=== PATIENT | male | born 1980 | race Caucasian/White ===

== ENCOUNTER 2020-03-24 13:11 | Inpatient (IN) | payer MEDICAID ==
[~2020-03-24] VITALS: Ht 165.1 cm; Wt 79.4 kg
[2020-03-24 13:56] LABS: EOSINOPHILS % (AUTO) 0.4 % (1.0-6.0); HEMATOCRIT 42.2 % (41-53); HEMOGLOBIN 14.3 g/dL (13.5-17.5); LYMPHOCYTES % (AUTO) 18.5 % (22.0-44.0); MEAN CORPUSCULAR HGB CONC 33.9 G/dL (31.0-37.0); MEAN CORPUSCULAR VOLUME 85 fL (80-100); MONOCYTES # (AUTO) 1.8 K/uL (0.1-1.0); MONOCYTES % (AUTO) 16.7 % (2.0-9.0); NEUTROPHILS # (AUTO) 6.7 K/uL (1.8-7.7); NEUTROPHILS % (AUTO) 63.4 % (40.0-70.0); PLATELET COUNT (AUTO) 205 K/uL (150-450); RED BLOOD CELL COUNT(AUTO) 4.95 MIL/uL (4.50-5.90); RED CELL DISTRIBUTION WIDTH 13.6 % (11.5-14.5)
[2020-03-24 14:19] LABS: ANION GAP 6 mmol/L (8-16); CALCIUM, TOTAL 8.9 mg/dL (8.8-10.5); CARBON DIOXIDE 28 mmol/L (22-29); CHLORIDE 99 mmol/L (98-107); CREATININE 1.56 mg/dL (0.60-1.30); GLOMERULAR FILTR. RATE CALC 50 mL/min (>60); GLUCOSE,RANDOM 140 mg/dL (70-110); POTASSIUM 3.7 mmol/L (3.5-5.1); SODIUM SERUM 133 mmol/L (136-145); UREA NITROGEN, BLOOD 40 mg/dL (7-18)
[2020-03-24 14:26] LABS: ALANINE AMINOTRANSFERASE 58 U/L (12-78); ALKALINE PHOSPHATASE 88 U/L (46-116); ASPARTATE AMINOTRANSFERASE 59 U/L (15-37); BILIRUBIN,TOTAL 1.3 mg/dL (0.1-1.0); TOTAL PROTEIN, SERUM 8.7 g/dL (6.4-8.2)
[2020-03-24 14:27] LABS: AMPHET/METH SCREEN,URINE POSITIVE (NEGATIVE); BARBITURATE SCREEN, URINE NEGATIVE (NEGATIVE); BENZODIAZEPINES SCREEN,URINE NEGATIVE (NEGATIVE); CANNABINOID SCREEN,URINE POSITIVE (NEGATIVE); COCAINE SCREEN,URINE NEGATIVE (NEGATIVE); METHADONE SCREEN, URINE NEGATIVE (NEGATIVE); OPIATE SCREEN,URINE NEGATIVE (NEGATIVE)
[2020-03-24 14:29] LABS: PHENCYCLIDINE SCREEN,URINE NEGATIVE (NEGATIVE)
[2020-03-24] MEDS ORDERED: HALOPERIDOL 5 MG TABLET PO PRN (15:00)
[2020-03-24] MEDS ORDERED: LORazepam 2 MG TABLET PO PRN (15:00)
[2020-03-24] MEDS ORDERED: SODIUM CHLORIDE 0.9% 1,000 ML IV ONE (16:30)
[2020-03-24] MEDS ORDERED: OLANZapine 5 MG TABLET PO ONE (16:30)
[2020-03-24 16:58] LABS: CREATINE KINASE, TOTAL ONLY 1304 U/L (39-308)
[2020-03-24] MEDS: OLANZapine 5 MG TABLET PO SCH (20:44)
[2020-03-25 05:10] LABS: BASOPHILS % (AUTO) 0.9 % (0.0-2.0); EOSINOPHILS % (AUTO) 2.5 % (1.0-6.0); HEMATOCRIT 39.8 % (41-53); HEMOGLOBIN 13.2 g/dL (13.5-17.5); LYMPHOCYTES # (AUTO) 1.9 K/uL (1.0-4.8); LYMPHOCYTES % (AUTO) 21.1 % (22.0-44.0); MEAN CORPUSCULAR HEMOGLOBIN 28.4 pg (26.0-34.0); MEAN CORPUSCULAR HGB CONC 33.1 G/dL (31.0-37.0); MEAN CORPUSCULAR VOLUME 86 fL (80-100); MONOCYTES % (AUTO) 22.2 % (2.0-9.0); NEUTROPHILS # (AUTO) 4.7 K/uL (1.8-7.7); NEUTROPHILS % (AUTO) 53.3 % (40.0-70.0); PLATELET COUNT (AUTO) 185 K/uL (150-450); RED BLOOD CELL COUNT(AUTO) 4.64 MIL/uL (4.50-5.90); RED CELL DISTRIBUTION WIDTH 13.6 % (11.5-14.5)
[2020-03-25 05:28] LABS: ALANINE AMINOTRANSFERASE 43 U/L (12-78); ALBUMIN 3.1 g/dL (3.4-5.0); ALKALINE PHOSPHATASE 74 U/L (46-116); ANION GAP 10 mmol/L (8-16); ASPARTATE AMINOTRANSFERASE 34 U/L (15-37); BILIRUBIN,TOTAL 0.7 mg/dL (0.1-1.0); CALCIUM, TOTAL 7.9 mg/dL (8.8-10.5); CARBON DIOXIDE 28 mmol/L (22-29); CHLORIDE 105 mmol/L (98-107); CREATININE 1.03 mg/dL (0.60-1.30); FREE T4 (FREE THYROXINE) 1.43 ng/dL (0.76-1.46); GLOMERULAR FILTR. RATE CALC > 60 mL/min (>60); GLUCOSE,RANDOM 115 mg/dL (70-110); POTASSIUM 3.3 mmol/L (3.5-5.1); SODIUM SERUM 143 mmol/L (136-145); THYROID STIMULATING HORMONE 1.74 uIU/mL (0.36-3.74); TOTAL PROTEIN, SERUM 6.9 g/dL (6.4-8.2); UREA NITROGEN, BLOOD 28 mg/dL (7-18)
[2020-03-25] MEDS ORDERED: POTASSIUM CHLORIDE 20 MEQ ER TABLET PO ONE (06:30)
[2020-03-25] MEDS: OLANZapine 5 MG TABLET PO SCH ×2 (07:46→16:27)
[2020-03-25 09:34] VITALS: BP 114/66
[2020-03-25] MEDS: CEPHALEXIN MONOHYDRATE 500 MG CAPSULE PO SCH ×2 (12:36→16:27)
[2020-03-25 16:00] VITALS: BP 104/68
[2020-03-25] MEDS: SULFAMETHOX/TRIMETH DS 800-160 MG/TABLET PO SCH (16:27)
[2020-03-26 08:00] VITALS: BP 116/66
[2020-03-26] MEDS: OLANZapine 5 MG TABLET PO SCH ×2 (08:39→16:25)
[2020-03-26] MEDS: CEPHALEXIN MONOHYDRATE 500 MG CAPSULE PO SCH ×3 (08:39→16:25)
[2020-03-26] MEDS: SULFAMETHOX/TRIMETH DS 800-160 MG/TABLET PO SCH ×2 (08:39→16:25)
[2020-03-26 16:52] VITALS: BP 115/74
[2020-03-26] MEDS: ACETAMINOPHEN 325 MG TABLET PO PRN (23:07)
[2020-03-27 07:44] LABS: ANION GAP 9 mmol/L (8-16); CALCIUM, TOTAL 8.6 mg/dL (8.8-10.5); CARBON DIOXIDE 26 mmol/L (22-29); CHLORIDE 109 mmol/L (98-107); CREATINE KINASE, TOTAL ONLY 229 U/L (39-308); CREATININE 0.98 mg/dL (0.60-1.30); GLOMERULAR FILTR. RATE CALC > 60 mL/min (>60); GLUCOSE,RANDOM 90 mg/dL (70-110); POTASSIUM 4.5 mmol/L (3.5-5.1); SODIUM SERUM 144 mmol/L (136-145); UREA NITROGEN, BLOOD 13 mg/dL (7-18)
[2020-03-27 08:00] VITALS: BP 95/58
[2020-03-27] MEDS: CEPHALEXIN MONOHYDRATE 500 MG CAPSULE PO SCH ×3 (09:09→16:48)
[2020-03-27] MEDS: OLANZapine 5 MG TABLET PO SCH ×2 (09:09→16:48)
[2020-03-27] MEDS: SULFAMETHOX/TRIMETH DS 800-160 MG/TABLET PO SCH ×2 (09:09→16:48)
[2020-03-27 16:43] VITALS: BP 114/73
[2020-03-28] MEDS: CEPHALEXIN MONOHYDRATE 500 MG CAPSULE PO SCH ×3 (09:14→17:08)
[2020-03-28] MEDS: SULFAMETHOX/TRIMETH DS 800-160 MG/TABLET PO SCH ×2 (09:15→17:08)
[2020-03-28] MEDS: OLANZapine 5 MG TABLET PO SCH ×2 (09:15→17:08)
[2020-03-28 09:38] VITALS: BP 115/74
[2020-03-28 16:31] VITALS: BP 105/71
[2020-03-29 08:40] VITALS: BP 102/65
[2020-03-29] MEDS: CEPHALEXIN MONOHYDRATE 500 MG CAPSULE PO SCH ×3 (10:13→16:16)
[2020-03-29] MEDS: OLANZapine 5 MG TABLET PO SCH ×2 (10:13→16:16)
[2020-03-29] MEDS: SULFAMETHOX/TRIMETH DS 800-160 MG/TABLET PO SCH ×2 (10:13→16:16)
[2020-03-29 11:10] VITALS: BP 102/65
[2020-03-29] MEDS: ACETAMINOPHEN 325 MG TABLET PO PRN (11:12)
[2020-03-29 17:07] VITALS: BP 106/62
[2020-03-29] MEDS: ZOLPIDEM TARTRATE 10 MG TABLET PO PRN (20:33)
[2020-03-30] MEDS: CEPHALEXIN MONOHYDRATE 500 MG CAPSULE PO SCH ×3 (08:18→16:26)
[2020-03-30] MEDS: SULFAMETHOX/TRIMETH DS 800-160 MG/TABLET PO SCH ×2 (08:18→16:26)
[2020-03-30 08:19] VITALS: BP 111/65
[2020-03-30] MEDS: OLANZapine 5 MG TABLET PO SCH ×2 (08:19→16:26)
[2020-03-30] MEDS: ACETAMINOPHEN 325 MG TABLET PO PRN (08:19)
[2020-03-30 09:19] VITALS: BP 101/65
[2020-03-30 18:27] VITALS: BP 122/67
[2020-03-30] MEDS: ZOLPIDEM TARTRATE 10 MG TABLET PO PRN (20:11)
[2020-03-31 08:00] VITALS: BP 126/89
[2020-03-31] MEDS: CEPHALEXIN MONOHYDRATE 500 MG CAPSULE PO SCH ×3 (08:31→16:26)
[2020-03-31] MEDS: OLANZapine 5 MG TABLET PO SCH ×2 (08:31→16:26)
[2020-03-31] MEDS: SULFAMETHOX/TRIMETH DS 800-160 MG/TABLET PO SCH ×2 (08:31→16:26)
[2020-03-31 16:00] VITALS: BP 93/54
[2020-04-01 10:37] VITALS: BP 124/71
[2020-04-01] MEDS: OLANZapine 5 MG TABLET PO SCH ×2 (11:13→16:26)
[2020-04-01] MEDS: SULFAMETHOX/TRIMETH DS 800-160 MG/TABLET PO SCH ×2 (11:14→16:26)
[2020-04-01] MEDS: CEPHALEXIN MONOHYDRATE 500 MG CAPSULE PO SCH ×3 (11:14→16:26)
[2020-04-01 17:48] VITALS: BP 92/59
[2020-04-01] MEDS: ZOLPIDEM TARTRATE 10 MG TABLET PO PRN (20:32)
[2020-04-02 08:00] VITALS: BP 117/77
[2020-04-02] MEDS: OLANZapine 5 MG TABLET PO SCH ×2 (08:55→16:09)
[2020-04-02] MEDS: CEPHALEXIN MONOHYDRATE 500 MG CAPSULE PO SCH ×3 (08:55→16:10)
[2020-04-02] MEDS: SULFAMETHOX/TRIMETH DS 800-160 MG/TABLET PO SCH ×2 (08:55→16:09)
[2020-04-02] MEDS ORDERED: OLAN5TAB2 PO (15:56)
== END 2020-04-02 16:45 | disposition home or self-care (01) | DRG 885 ==
LOC: EMS 13:12 → 3EI 15:01
PROVIDERS: ADMIT Psychiatry & Neurology Psychiatry; ATTEND Psychiatry & Neurology Psychiatry
DX: F29 Unspecified psychosis not due to a substance or known physiological condition (principal); N17.9 Acute kidney failure, unspecified; R45.851 Suicidal ideations; M62.82 Rhabdomyolysis; F15.10 Other stimulant abuse, uncomplicated; F20.9 Schizophrenia, unspecified; R45.850 Homicidal ideations; Z59.0 Homelessness; F17.200 Nicotine dependence, unspecified, uncomplicated; E87.6 Hypokalemia; D64.9 Anemia, unspecified; F32.9 Major depressive disorder, single episode, unspecified
CPT/HCPCS: 84439; 84443; 87040; G0480; J7030